=== PATIENT | female | born 2000 | race Caucasian/White ===

== ENCOUNTER 2019-09-12 10:06 | Emergency (ER) | payer OTHER ==
--- NOTE | 2019-09-12 10:29 | ED Physician Documentation ---
PD HPI LOWER EXT INJURY - Stated complaint Stated Complaint: L KNEE INJ - Chief complaint Chief Complaint: Ext Problem - History obtained from History obtained from: Patient, Family - History of Present Illness PD HPI LOW EXT INJURY LOCATION: Left, Knee Type of injury: Fall, Twist Where injury occurred: Park Timing - onset: How many days ago (2) Timing - duration: Days (2) Timing - details: Abrupt onset, Still present Improved by: Rest, Immobilization Worsened by: Moving, Palpating Associated symptoms: Swelling. No: Weakness, Numbness, Tingling Contributing factors: No: Anticoagulated, Prior ortho surgery Similar symptoms before: Has not had sx before Recently seen: Not recently seen - Additional information Additional information: 19-year-old female was snow skiing 2 days ago during a snowplow when she fell and twisted her left knee. She has some pain to the lateral aspect of the knee and is unable to bear weight. Review of Systems Constitutional: denies: Fever Eyes: denies: Decreased vision Ears: denies: Ear pain Nose: denies: Congestion Respiratory: denies: Cough GI: denies: Vomiting PD PAST MEDICAL HISTORY - Allergies Allergies/Adverse Reactions: Allergies Allergy/AdvReac Type Severity Reaction Status Date / Time No Known Drug Allergies Allergy Verified 09/12/19 10:11 PD ED PE NORMAL - Vitals Vital signs reviewed: Yes (Tachycardic and hypertensive) - General General: Alert and oriented X 3, No acute distress, Well developed/nourished - HEENT HEENT: Atraumatic, PERRL, EOMI - Neck Neck: Supple, no meningeal sign - Respiratory Respiratory: No respiratory distress - Derm Derm: Normal color, Warm and dry, No rash - Extremities Extremities: No deformity, No edema, Other (Examination of the left knee reveals some tenderness to the lateral joint line she has some pain to the lateral joint line with compression and she has stable ligaments to testing. 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 No evidence for acute fracture or dislocation of the left knee. 2. Small joint effusion is noted.), EMP read indepedently, See rad report PD MEDICAL DECISION MAKING - ED course Complexity details: reviewed results, re-evaluated patient, considered differential, d/w patient ED course: 19-year-old female with a sprain to the left knee has stable ligaments on testing she does have some pain with range of motion and some locking of her knee consistent with an internal derangement. She does have a small joint effusion. She is placed into a knee immobilizer and will have follow-up with orthopedics. Departure - Departure Disposition: 01 Home, Self Care Clinical Impression: Left knee sprain Qualifiers: Encounter type: initial encounter Involved ligament of knee: unspecified ligam ent Qualified Code(s): S83.92XA - Sprain of unspecified site of left knee, initial encounter Condition: Stable Instructions: ED Effusion Knee, ED Sprain Knee Follow-Up: Addie Munoz ARNP [Primary Care Provider] - [facility] [Provider Group] Forms: Activity restrictions
--- NOTE | 2019-09-12 10:57 | XRAY Report ---
Reason: twisting injury skiing lateral joint line pain. Procedure Date: 09/12/2019 Accession Number: [id number] / [id number] Procedure: XR - Knee 4 View LT CPT Code: Final Report FULL RESULT: EXAM: LEFT KNEE RADIOGRAPHY EXAM DATE: 09/12/2019 10:43 AM. CLINICAL HISTORY: Twisting injury skiing lateral joint line pain. COMPARISON: None. TECHNIQUE: 4 views. FINDINGS: Bones: Normal. No fractures or bone lesions. Joints: Small joint effusion. No subluxation. Soft Tissues: Normal. No soft tissue swelling. IMPRESSION: 1. No evidence for acute fracture or dislocation of the left knee. 2. Small joint effusion is noted. [facility]
[2019-09-12 11:50] VITALS: BP 128/115
== END 2019-09-12 12:06 | disposition home or self-care (01) ==
LOC: ED 10:06
DX: S83.92XA Sprain of unspecified site of left knee, initial encounter (principal); V00.321A Fall from snow-skis, initial encounter; Y93.23 Activity, snow (alpine) (downhill) skiing, snowboarding, sledding, tobogganing and snow tubing; Y92.830 Public park as the place of occurrence of the external cause
CPT/HCPCS: 99283; 99284